=== PATIENT | male | born 1960 | race Caucasian/White ===

== ENCOUNTER → 2025-02-03 09:27 | Outpatient (REF) | payer BC, SELFPAY | LOC: RAD 09:27 | PROVIDERS: ATTENDING PHYSICIAN Student in an Organized Health Care Education/Training Program; FAMILY PHYSICIAN Family Medicine | DX: M25.519 Pain in unspecified shoulder (principal); M79.643 Pain in unspecified hand | CPT/HCPCS: 76882 ==